=== PATIENT | female | born 2000 ===

== ENCOUNTER 2020-11-15 03:00 | Inpatient (IN) | payer OTHER ==
[~2020-11-15 03:00] MED LIST: DEXTROSE 5%-LACTATED RINGERS 1,000 ML IV SCH
[2020-11-15 06:25] LABS: BASO % 0.3 % (0-2.0); EOS % 0.1 % (0-4.5); HEMOGLOBIN 12.2 GM/dL (10.7-15.3); LYMPH % 11.9 % (8-40); MCH 31.6 pg (25.7-33.7); MCHC 33.9 g/dl (32.0-36.0); MEAN CELL VOLUME 93.2 fl (80-96); MONO % 4.4 % (3.8-10.2); NEUT % 83.3 % (42.8-82.8); PLATELET COUNT 227 K/MM3 (134-434); RBC 3.86 M/mm3 (3.60-5.2); RDW 13.2 % (11.6-15.6); WHITE BLOOD COUNT 13.5 K/mm3 (4.0-10.0)
[2020-11-15 06:35] LABS: INR 0.93 (0.83-1.09); PROTHROMBIN TIME (PATIENT) 11.3 SEC (9.7-13.0)
[2020-11-15 06:38] LABS: ACTIVATED PTT 23.8 SECONDS (25.2-36.5)
[2020-11-15 06:50] LABS: POTASSIUM 3.8 mmol/L (3.5-5.1)
[2020-11-15 06:51] LABS: CALCIUM 8.8 mg/dL (8.5-10.1)
[2020-11-15 06:52] LABS: BLOOD UREA NITROGEN 5.3 mg/dL (7-18)
[2020-11-15 06:54] LABS: CREATININE 0.6 mg/dL (0.55-1.3)
[2020-11-15] MEDS: ELECTROLYTE-148 SOLN 1,000 ML IV SCH (07:00)
[2020-11-15] MEDS ORDERED: FENTANYL/BUPIVACAINE/NS/PF - PCEA - 50 ML DISP.SYRIN EP ONE (07:35)
[2020-11-15 08:12] VITALS: BMI 27.1
[2020-11-15] MEDS ORDERED: NALOXONE HCL 0.4 MG/ML VIAL IVPUSH PRN (08:50)
[2020-11-15] MEDS ORDERED: FENTANYL/BUPIVACAINE/NS/PF - PCEA - 50 ML DISP.SYRIN EP SCH ×2 (09:00→09:07)
[2020-11-15] MEDS ORDERED: OXYTOCIN 20 UNITS in 0.9% NS 20 UNIT/1,000 ML INFUS.BAG IV ONE (10:10)
[2020-11-15] MEDS ORDERED: LIDOCAINE HCL 1% PRESERVATIVE FREE - 30ML VIAL ONE (10:11)
[2020-11-15] MEDS ORDERED: PCA PUMP NR ONE (10:11)
[2020-11-15] MEDS ORDERED: OXYTOCIN 30 UNITS in 0.9% NS 30 UNIT/500 ML INFUS.BAG IVPB ONE (11:31)
[2020-11-15] MEDS ORDERED: OXYTOCIN 30 UNITS in 0.9% NS 30 UNIT/500 ML INFUS.BAG IVPB SCH (11:45)
[2020-11-15] MEDS ORDERED: CEFAZOLIN 2 GM/D5W 2 GM/50 ML ML IVPB ONE (13:42)
[2020-11-15 13:44] LABS: CORD BASE EXCESS -4.4 mmol/L (0-2); CORD HCO3 21.4 mmHg (20-29); CORD pH 7.326 (7.14-7.44)
[2020-11-15 13:47] LABS: CORD BASE EXCESS -4.3 mmol/L (0-2); CORD HCO3 22.6 mmHg (20-29); CORD pH 7.29 (7.14-7.44)
[2020-11-15] MEDS ORDERED: WITCH HAZEL 50% (TUCKS) 40 PAD/JAR PAD TP PRN (14:19)
[2020-11-15] MEDS ORDERED: METHYLERGONOVINE MALEATE 0.2 MG/1 ML AMP IM PRN (14:19)
[2020-11-15] MEDS ORDERED: BENZOCAINE 20% 57 GM BOTTLE TP PRN (14:19)
[2020-11-15] MEDS ORDERED: BENZOCAINE 28 GM HEMORRHOIDAL OINTMENT TP PRN (14:19)
[2020-11-15] MEDS ORDERED: BISACODYL 10 MG SUPP.RECT RC PRN (14:19)
[2020-11-15] MEDS ORDERED: ceFAZolin 2 GRAM PREMIX BAG IVPB SCH (14:30)
[2020-11-15] MEDS: OXYTOCIN 20 UNITS in 0.9% NS 20 UNIT/1,000 ML INFUS.BAG IV SCH (14:30)
[2020-11-15] MEDS: ACETAMINOPHEN 325 MG TABLET (FP) PO PRN (14:50)
[2020-11-15] MEDS ORDERED: IBUPROFEN 600 MG TABLET (FP) PO ONE (14:50)
[2020-11-15] MEDS ORDERED: ACETAMINOPHEN 325 MG TABLET (FP) ONE (14:50)
[2020-11-15] MEDS: IBUPROFEN 600 MG TABLET (FP) PO PRN (14:50)
[2020-11-15] MEDS: FERROUS SO4 325 MG TABLET (FP) PO SCH (18:47)
[2020-11-16] MEDS: IBUPROFEN 600 MG TABLET (FP) PO PRN ×3 (02:05→23:22)
[2020-11-16] MEDS: ACETAMINOPHEN 325 MG TABLET (FP) PO PRN ×3 (02:06→23:20)
[2020-11-16 08:33] LABS: BASO % 0.7 % (0-2.0); EOS % 0.3 % (0-4.5); HEMATOCRIT 28.3 % (32.4-45.2); HEMOGLOBIN 9.5 GM/dL (10.7-15.3); LYMPH % 17.5 % (8-40); MCH 31.8 pg (25.7-33.7); MCHC 33.7 g/dl (32.0-36.0); MEAN CELL VOLUME 94.3 fl (80-96); MEAN PLT VOLUME 8.3 fl (7.5-11.1); MONO % 4.6 % (3.8-10.2); NEUT % 76.9 % (42.8-82.8); PLATELET COUNT 182 K/MM3 (134-434); RDW 13.2 % (11.6-15.6); WHITE BLOOD COUNT 11.6 K/mm3 (4.0-10.0)
[2020-11-16] MEDS: FERROUS SO4 325 MG TABLET (FP) PO SCH ×2 (09:00→17:43)
[2020-11-16] MEDS: PRENATAL VITAMINS W/ FOLIC ACID TABLET (FP) PO SCH (09:00)
[2020-11-16] MEDS ORDERED: SENNOSIDES/DOCUSATE COMBO (SENNA PLUS) TABLET (UD) PO PRN (22:00)
[2020-11-16] MEDS: ELECTROLYTE-148 SOLN 1,000 ML IV SCH (23:19)
[2020-11-16] MEDS: OXYTOCIN 20 UNITS in 0.9% NS 20 UNIT/1,000 ML INFUS.BAG IV SCH (23:19)
[2020-11-17 08:40] VITALS: BP 110/68; PULSE 87; TEMP 98.3
[2020-11-17] MEDS: PRENATAL VITAMINS W/ FOLIC ACID TABLET (FP) PO SCH (09:22)
[2020-11-17] MEDS: FERROUS SO4 325 MG TABLET (FP) PO SCH (09:22)
== END 2020-11-17 15:30 | disposition home or self-care (01) | DRG 560 ==
LOC: JLDR 03:00 → J3W 15:10
PROVIDERS: ADMIT Obstetrics & Gynecology; ATTEND Obstetrics & Gynecology
PROC: 10E0XZZ Delivery of Products of Conception, External Approach (ICD-10-PCS; principal; 2020-11-15)
PROC: 0W8NXZZ Division of Female Perineum, External Approach (ICD-10-PCS; 2020-11-15)
DX: O69.1XX0 Labor and delivery complicated by cord around neck, with compression, not applicable or unspecified (principal); Z3A.39 39 weeks gestation of pregnancy; Z37.0 Single live birth
CPT/HCPCS: 36415; 36600; 59409; 80048; 82803; 85025; 85610; 85730; 86780; 86850; 86900; 86901; C9803; U0003

== ENCOUNTER 2022-11-01 11:50 | Inpatient (IN) | payer OTHER ==
[2022-11-01] MEDS ORDERED: MISOPROSTOL 200 MCG TABLET ONE (12:46)
[2022-11-01] MEDS ORDERED: BENZOCAINE 20% 57 GM BOTTLE TP PRN (13:11)
[2022-11-01] MEDS ORDERED: BISACODYL 10 MG SUPP.RECT RC PRN (13:11)
[2022-11-01] MEDS ORDERED: METHYLERGONOVINE MALEATE 0.2 MG/1 ML AMP IM ONE (13:11)
[2022-11-01] MEDS ORDERED: ACETAMINOPHEN 325 MG TABLET (FP) PO PRN (13:11)
[2022-11-01] MEDS ORDERED: WITCH HAZEL 50% (TUCKS) 40 PAD/JAR PAD TP PRN (13:11)
[2022-11-01] MEDS ORDERED: BENZOCAINE 28 GM HEMORRHOIDAL OINTMENT TP PRN (13:11)
[2022-11-01] MEDS ORDERED: MISOPROSTOL 200 MCG TABLET PV ONE (13:12)
[2022-11-01] MEDS ORDERED: OXYTOCIN 20 UNITS in 0.9% NS 20 UNIT/1,000 ML INFUS.BAG IV SCH (13:15)
[2022-11-01] MEDS ORDERED: ELECTROLYTE-148 SOLN 1,000 ML IV SCH (13:15)
[2022-11-01 14:21] VITALS: BMI 29.2
[2022-11-01 14:55] LABS: POC NITRAZINE POS
[2022-11-01] MEDS ORDERED: OXYTOCIN 20 UNITS in 0.9% NS 20 UNIT/1,000 ML INFUS.BAG IV ONE (15:35)
[2022-11-01 15:49] LABS: BASO % 0.3 % (0-2.0); HEMATOCRIT 34.7 % (32.4-45.2); HEMOGLOBIN 11.2 GM/dL (10.7-15.3); INR 0.97 (0.83-1.09); LYMPH % 7.1 % (8-40); MCH 28.8 pg (25.7-33.7); MCHC 32.3 g/dl (32.0-36.0); MEAN CELL VOLUME 89.2 fl (80-96); MEAN PLT VOLUME 8.4 fl (7.5-11.1); MONO % 3.2 % (3.8-10.2); NEUT % 89.4 % (42.8-82.8); PLATELET COUNT 268 10^3/uL (134-434); PROTHROMBIN TIME (PATIENT) 11.2 SEC (9.7-13.0); RBC 3.89 M/mm3 (3.60-5.2); RDW 13.2 % (11.6-15.6); WHITE BLOOD COUNT 16.9 K/mm3 (4.0-10.0)
[2022-11-01 15:52] LABS: ACTIVATED PTT 22.5 SECONDS (25.2-36.5)
[2022-11-01 16:08] LABS: CHLORIDE 108 mmol/L (98-107); SODIUM 141 mmol/L (136-145)
[2022-11-01 16:09] LABS: CALCIUM 8.7 mg/dL (8.5-10.1)
[2022-11-01 16:10] LABS: ANION GAP 10 MMOL/L (8-16); CO2 23 mmol/L (21-32); GLUCOSE,RANDOM 90 mg/dL (74-106)
[2022-11-01 16:13] LABS: CREATININE 0.5 mg/dL (0.55-1.3)
[2022-11-01 16:28] LABS: BLOOD UREA NITROGEN 2.9 mg/dL (7-18)
[2022-11-01] MEDS: IBUPROFEN 600 MG TABLET (FP) PO PRN (20:02)
[2022-11-02] MEDS: IBUPROFEN 600 MG TABLET (FP) PO PRN ×2 (04:42→19:45)
[2022-11-02 08:31] LABS: BASO % 0.4 % (0-2.0); EOS % 0.5 % (0-4.5); HEMATOCRIT 28.8 % (32.4-45.2); HEMOGLOBIN 9.7 GM/dL (10.7-15.3); MCH 29.9 pg (25.7-33.7); MCHC 33.8 g/dl (32.0-36.0); MEAN CELL VOLUME 88.6 fl (80-96); MEAN PLT VOLUME 8.1 fl (7.5-11.1); MONO % 7.2 % (3.8-10.2); NEUT % 75.9 % (42.8-82.8); PLATELET COUNT 240 10^3/uL (134-434); RBC 3.25 M/mm3 (3.60-5.2); RDW 13.2 % (11.6-15.6); WHITE BLOOD COUNT 10.2 K/mm3 (4.0-10.0)
[2022-11-02] MEDS ORDERED: SENNOSIDES/DOCUSATE COMBO (SENNA PLUS) TABLET (UD) PO PRN (22:00)
[2022-11-03 09:50] VITALS: BP 105/71; PULSE 87; RESP 18; TEMP 97.9
== END 2022-11-03 14:05 | disposition home or self-care (01) | DRG 560 ==
LOC: JLDR 11:50 → J3W 15:49
PROVIDERS: ADMIT Student in an Organized Health Care Education/Training Program; ATTEND Student in an Organized Health Care Education/Training Program
PROC: 10E0XZZ Delivery of Products of Conception, External Approach (ICD-10-PCS; principal; 2022-11-01)
DX: O80 Encounter for full-term uncomplicated delivery (principal); Z3A.38 38 weeks gestation of pregnancy; Z37.0 Single live birth
CPT/HCPCS: 36415; 59409; 80048; 83986-QW; 85025; 85610; 85730; 86780; 86850; 86900; 86901; C9803-CS; U0003; U0005